=== PATIENT | male | born 1955 | race Native Hawaiian/Other Pacific Islander ===

== ENCOUNTER 2016-07-04 15:39 | Emergency (ER) | payer BC ==
[~2016-07-04] VITALS: Ht 172.7 cm; Wt 97.1 kg
[2016-07-04 16:32] LABS: PLATELET COUNT 146 K/uL (142-355)
[2016-07-04 16:41] LABS: POTASSIUM 3.5 mmol/L (3.6-5.2); SODIUM 134 mmol/L (136-145)
== END 2016-07-04 17:40 | disposition home or self-care (01) ==
LOC: ED 15:39
PROVIDERS: Emergency Medicine
DX: R00.2 Palpitations (principal)
CPT/HCPCS: 36415; 80053; 84484; 85027; 93005; 99283